=== PATIENT | male | born 1995 | race Two or more races ===

== ENCOUNTER 2020-01-16 12:36 | Emergency (ER) | payer BC ==
--- NOTE | 2020-01-16 12:48 | EDM.PDOC ---
ED HPI GENERAL MEDICAL PROBLEM - General Chief Complaint: Upper Extremity Injury/Pain Stated Complaint: RIGHT LOWER ARM PAIN Time Seen by Provider: 01/16/20 12:40 Source of Information: Reports: Patient History Limitations: Reports: No Limitations - History of Present Illness INITIAL COMMENTS - FREE TEXT/NARRATIVE: HISTORY AND PHYSICAL: History of present illness: Patient is a 24-year-old male who presents to the emergency room with complaints of right elbow pain. He states over the weekend he was using a long pipe to loosen a bolt when it gave away suddenly causing severe pain to his right elbow. He states he is unable to fully extend the elbow without causing pain. Denies any numbness or tingling of the distal extremities. Denies any bruising or soft tissue swelling. Review of systems: As per history of present illness and below otherwise all systems reviewed and negative. Past medical history: As per history of present illness and as reviewed below otherwise noncontributory. Surgical history: As per history of present illness and as reviewed below otherwise noncontributory. Social history: See social history for further information Family history: As per history of present illness and as reviewed below otherwise noncontributory. Physical exam: General: Well-developed and well-nourished 24-year-old male. Alert and appropriate for age. Nontoxic-appearing and in no acute distress. HEENT: Atraumatic, normocephalic, pupils equal and reactive bilaterally, negative for conjunctival pallor or scleral icterus, mucous membranes moist, trachea midline. No drooling or trismus noted. No meningeal signs. No hot potato voice noted. Lungs: Clear to auscultation, breath sounds equal bilaterally, chest nontender. Heart: S1S2, regular rate and rhythm without overt murmur Abdomen: Soft, nondistended, nontender. Negative for masses or hepatosplenomegaly. Negative for costovertebral tenderness. Skin: Intact, warm, dry. No lesions or rashes noted. Extremities: Unable to fully extend or flex the right elbow. Has pain with palpation of the olecranon. Good flexion and extension of the wrist hand and fingers. Strong radial pulse. Cap refill less than 3 seconds moves all other extremities per self without difficulty or deficits. Neurovascular unremarkable. Neuro: Awake, alert, oriented. Cranial nerves II through XII unremarkable. Cerebellum unremarkable. Motor and sensory unremarkable throughout. Exam nonfocal. Notes: X-ray shows small bony density most likely representing old calcific tendinitis. Nothing acute is suspected. Will place patient in a sling for comfort. Encouraged to wear over the next 2-3 days or until follows up with orthopedics. Encouraged him to follow-up with orthopedic provider. Supportive care measures were reviewed and discussed. Voices understanding and is agreeable to plan of care. Denies any further questions or concerns at this time. Diagnostics: X-ray Therapeutics: Sling Prescription: Diclofenac Impression: Right elbow injury Tendonitis Plan: 1. Rest, ice, elevate the affected extremity. Please wear the sling over the next 2-3 days. 2. Tylenol and/or Ibuprofen as needed for pain management. 3. Follow up with the Orthopedic provider as we discussed. Return to the ED as needed and as discussed. Definitive disposition and diagnosis as appropriate pending reevaluation and review of above. R arm Pain Score (Numeric/FACES): 4 - Related Data Allergies Allergy/AdvReac Type Severity Reaction Status Date / Time No Known Allergies Allergy Verified 01/16/20 12:53 Home Meds: Home Meds . [No Known Home Meds] 01/16/20 [History] Review of Systems - Review of Systems Review Of Systems: Comprehensive ROS is negative, except as noted in HPI. ED EXAM, GENERAL - Physical Exam Exam: See Below (See dictation) Course - Vital Signs Last Recorded V/S: Last Vital Signs Temp 97.2 F 01/16/20 12:50 Pulse 96 01/16/20 12:50 Resp 16 01/16/20 12:50 BP 137/68 01/16/20 12:50 Pulse Ox 96 01/16/20 12:50 - Orders/Labs/Meds Orders: Active Orders 24 hr Category Date Time Status DME for Discharge [COMM] Stat Oth 01/16/20 13:38 Ordered Departure - Departure Time of Disposition: 13:37 Disposition: Home, Self-Care 01 Clinical Impression: Tendonitis Injury of right elbow Qualifiers: Encounter type: initial encounter Qualified Code(s): S59.901A - Unspecified injury of right elbow, initial encounter - Discharge Information Instructions: Tendinitis, [id number] Referrals: PCP,None [Primary Care Provider] - Forms: ED Department Discharge Additional Instructions: The following information is given to patients seen in the emergency department who are being discharged to home. This information is to outline your options for follow-up care. We provide all patients seen in our emergency department with a follow-up referral. The need for follow-up, as well as the timing and circumstances, are variable depending upon the specifics of your emergency department visit. If you don't have a primary care physician on staff, we will provide you with a referral. We always advise you to contact your personal physician following an emergency department visit to inform them of the circumstance of the visit and for follow-up with them and/or the need for any referrals to a consulting specialist. The emergency department will also refer you to a specialist when appropriate. This referral assures that you have the opportunity for follow-up care with a specialist. All of these measure are taken in an effort to provide you with optimal care, which includes your follow-up. Under all circumstances we always encourage you to contact your private physician who remains a resource for coordinating your care. When calling for follow-up care, please make the office aware that this follow-up is from your recent emergency room visit. If for any reason you are refused follow-up, please contact the [facility] Emergency Department at and asked to speak to the emergency department charge nurse. [facility] Specialty Care - Orthopedic Clinic Professional [address], [address] [place] [address] Dr Gibsno, Orthopedist [facility] [address] [place] [address] Orthopedics at [facility] [address] [place] [address] [facility] [address] [place] [address] 1. Rest, ice, elevate the affected extremity. Please wear the sling over the next 2-3 days. 2. Tylenol and/or Ibuprofen as needed for pain management. 3. Follow up with the Orthopedic provider as we discussed. Return to the ED as needed and as discussed. Sepsis Event Note - Focused Exam Vital Signs: Vital Signs Temp Pulse Resp BP Pulse Ox 01/16/20 12:50 97.2 F 96 16 137/68 96 Date Exam was Performed: 01/16/20 Time Exam was Performed: 13:38 - My Orders Last 24 Hours: My Active Orders 01/16/20 13:38 DME for Discharge [COMM] Stat - Assessment/Plan Last 24 Hours: My Active Orders 01/16/20 13:38 DME for Discharge [COMM] Stat
--- NOTE | 2020-01-16 13:32 | CR ---
Right elbow: 3 views the right elbow were obtained. Comparison: No previous elbow study. Small calcification is seen off the medial epicondyles compatible with old calcific tendinitis. Joint spaces are maintained. No joint effusion is seen. Nothing acute is appreciated. Impression: 1. Small bony density most likely representing old calcific tendinitis. 2. Nothing acute is suspected. Diagnostic code #3 This report was dictated in [place] Standard Time
== END 2020-01-16 13:40 | disposition home or self-care (01) ==
LOC: MW.ED 12:36
DX: M70.88 Other soft tissue disorders related to use, overuse and pressure other site (principal); X50.9XXA Other and unspecified overexertion or strenuous movements or postures, initial encounter
CPT/HCPCS: 73080-26-RT; 73080-RT; 99283-25